=== PATIENT | female | born 1940 | race Native Hawaiian/Other Pacific Islander ===

== ENCOUNTER 2017-09-10 14:17 | Observation (INO) | payer MEDICARE, OTHER ==
[2017-09-10 15:26] LABS: Anisocytosis Slight; Basophils % (A) 0 %; Eosinophils # (A) 0.3 k/uL (0-0.7); Eosinophils % (A) 3 %; HGB 8.9 gm/dL (11.4-16.0); Hypochromasia Marked; Lymphocytes # (A) 2.1 k/uL (1.0-4.8); Lymphocytes % (A) 27 %; MCH 23.9 pg (25.0-35.0); MCHC 30.6 g/dL (31.0-37.0); MCV 78.1 fL (80.0-100.0); Mean Platelet Volume 7.3; Microcytosis Slight; Monocytes # (A) 0.7 k/uL (0-1.0); Monocytes % (A) 9 %; Neutrophils # (A) 4.4 k/uL (1.3-7.7); Neutrophils % (A) 58 %; Platelet Count 398 k/uL (150-450); Poikilocytosis Slight; RBC 3.71 m/uL (3.80-5.40); RDW 16.1 % (11.5-15.5); WBC 7.6 k/uL (3.8-10.6)
--- NOTE | 2017-09-10 15:30 | ED ---
General Adult HPI - General Chief complaint: Fever Stated complaint: Fever Time Seen by Provider: 09/10/17 14:31 Source: family, EMS, RN notes reviewed, old records reviewed Mode of arrival: EMS Limitations: altered mental status, physical limitation - History of Present Illness Initial comments: 77 yo female transferred from the intermediate with persistent fever and concern for sepsis. Patient is 6 weeks status post intracranial hemorrhage craniotomy. She has been in the intermediate and has failed to improve according to her . She is trached with 6 L trach collar. She receives her feeding through a PEG tube. She is nonambulatory, nonverbal. Patient is unable to do the history and the does not speak fluent Armenian. - Related Data Home Medications Medication Instructions Recorded Confirmed Acetaminophen Tab [Tylenol Tab] 650 mg PEG/G-TUBE Q4H PRN 09/10/17 09/10/17 Heparin Sodium,Porcine [Heparin 5,000 unit SQ TID@06,14,22 09/10/17 09/10/17 Sodium] Ipratropium-Albuterol Nebulize 3 ml INHALATION RT-Q4H 09/10/17 09/10/17 [Duoneb 0.5 mg-3 mg/3 ml Soln] Jevity 1.5 Augusto Liquid 50 ml PEG/G-TUBE DIRECTED 09/10/17 09/10/17 Lansoprazole 30 mg PEG/G-TUBE DAILY@0600 09/10/17 09/10/17 Metoprolol Tartrate [Lopressor] 25 mg PEG/G-TUBE BID 09/10/17 09/10/17 Refresh Lacri-Lube Opth Oint 0.25 inch BOTH EYES QID@00,06,12,18 09/10/17 cloNIDine 0.2 MG/24HR PATCH 1 patch TRANSDERM SA@0900 09/10/17 09/10/17 [Catapres-TTS] levETIRAcetam 500 mg PEG/G-TUBE Q12H 09/10/17 09/10/17 Allergies Allergy/AdvReac Type Severity Reaction Status Date / Time No Known Allergies Allergy Verified 09/10/17 14:34 Review of Systems ROS Statement: Those systems with pertinent positive or pertinent negative responses have been documented in the HPI. ROS Other: All systems not noted in ROS Statement are negative. Past Medical History Past Medical History: Unable to Obtain, CVA/TIA, GERD/Reflux History of Any Multi-Drug Resistant Organisms: Unobtainable Past Surgical History: Unable to Obtain Past Psychological History: Unable to Obtain Smoking Status: Unknown if ever smoked Past Alcohol Use History: Unable to Obtain Past Drug Use History: Unable to Obtain General Exam Limitations: altered mental status, physical limitation General appearance: alert, in no apparent distress Head exam: Present: atraumatic, normocephalic Eye exam: Absent: normal appearance ((Sluggish, corneal clouding. Right pupil 4 mm sluggish) ENT exam: Present: mucous membranes dry Neck exam: Present: normal inspection. Absent: meningismus Respiratory exam: Present: rhonchi (Rhonchi bilaterally may be transmitted upper airway). Absent: respiratory distress Cardiovascular Exam: Present: regular rate, normal rhythm GI/Abdominal exam: Present: soft. Absent: distended, tenderness Extremities exam: Present: normal inspection Back exam: Present: other (Stage I sacral decubitus ulcer) Neurological exam: Present: other (Patient does not move any extremity, she does not follow commands. She does spontaneously open her right eye.) Skin exam: Present: warm, dry Course Vital Signs 09/10/17 09/10/17 14:23 16:44 Temperature 99.5 F Pulse Rate 78 79 Respiratory 18 20 Rate Blood Pressure 152/67 177/75 O2 Sat by Pulse 100 100 Oximetry Medical Decision Making - Medical Decision Making 77 yo female with recent intracranial hemorrhage presents from intermediate with fever and failure to progress to rehab. Given the recent renal hemorrhage computed tomography scan is obtained, this shows a chronic subdural with postoperative change and concern for possible acute hemorrhage with 4.5 mm shift no herniation noted. This CT finding is discussed with the patient's neurosurgeon from [facility] Dr. King, he is very familiar with the patient, she was recently discharged from their hospital. He states these findings are chronic. He is not concern for acute intracranial hemorrhage. He also states that her current state of health is her baseline mental status no change noted. Fever workup is obtained in the emergency department, patient has chest x-ray with no focal pneumonia, there is some atelectasis. White blood cell count is normal, hemoglobin is 8.9 with no baseline for comparison. CMP unremarkable. Urinalysis negative for infection. Skin exam with the exception of a stage I non-infected sacral decubitus ulcer is unremarkable. Case discussed with Dr. Diehl, will accept the patient in observation status. Awaiting culture results. Patient's vital signs do not point toward sepsis at this time however she is high risk and will be observed. No antibiotics given awaiting culture results. - Lab Data Result diagrams: 09/10/17 15:05 09/10/17 15:05 Lab Results 09/10/17 09/10/17 09/10/17 Range/Units 15:05 15:05 15:05 WBC 7.6 (3.8-10.6) k/uL RBC 3.71 L (3.80-5.40) m/uL Hgb 8.9 L (11.4-16.0) gm/dL Hct 29.0 L (34.0-46.0) % MCV 78.1 L (80.0-100.0) fL MCH 23.9 L (25.0-35.0) pg MCHC 30.6 L (31.0-37.0) g/dL RDW 16.1 H (11.5-15.5) % Plt Count 398 (150-450) k/uL Neutrophils % 58 % Lymphocytes % 27 % Monocytes % 9 % Eosinophils % 3 % Basophils % 0 % Neutrophils # 4.4 (1.3-7.7) k/uL Lymphocytes # 2.1 (1.0-4.8) k/uL Monocytes # 0.7 (0-1.0) k/uL Eosinophils # 0.3 (0-0.7) k/uL Basophils # 0.0 (0-0.2) k/uL Hypochromasia Marked Poikilocytosis Slight Anisocytosis Slight Microcytosis Slight Sodium 135 L (137-145) mmol/L Potassium 4.8 (3.5-5.1) mmol/L Chloride 99 (98-107) mmol/L Carbon Dioxide 25 (22-30) mmol/L Anion Gap 11 mmol/L BUN 19 H (7-17) mg/dL Creatinine 0.50 L (0.52-1.04) mg/dL Est GFR (CKD-EPI)AfAm >90 (>60 ml/min/1.73 sqM) Est GFR (CKD-EPI)NonAf >90 (>60 ml/min/1.73 sqM) Glucose 102 H (74-99) mg/dL Plasma Lactic Acid Ashvin 1.0 (0.7-2.0) mmol/L Calcium 9.4 (8.4-10.2) mg/dL Total Bilirubin 0.4 (0.2-1.3) mg/dL AST 39 H (14-36) U/L ALT 24 (9-52) U/L Alkaline Phosphatase 94 (38-126) U/L Total Protein 6.6 (6.3-8.2) g/dL Albumin 3.1 L (3.5-5.0) g/dL Urine Color Urine Appearance (Clear) Urine pH (5.0-8.0) Ur Specific [place] (1.001-1.035) Urine Protein (Negative) Urine Glucose (UA) (Negative) Urine Ketones (Negative) Urine Blood (Negative) Urine Nitrite (Negative) Urine Bilirubin (Negative) Urine Urobilinogen (<2.0) mg/dL Ur Leukocyte Esterase (Negative) Urine RBC (0-5) /hpf Urine WBC (0-5) /hpf Ur Squamous Epith Cells (0-4) /hpf Urine Bacteria (None) /hpf Urine Mucus (None) /hpf Urine Yeast (Budding) (None) /hpf 09/10/17 Range/Units 15:05 WBC (3.8-10.6) k/uL RBC (3.80-5.40) m/uL Hgb (11.4-16.0) gm/dL Hct (34.0-46.0) % MCV (80.0-100.0) fL MCH (25.0-35.0) pg MCHC (31.0-37.0) g/dL RDW (11.5-15.5) % Plt Count (150-450) k/uL Neutrophils % % Lymphocytes % % Monocytes % % Eosinophils % % Basophils % % Neutrophils # (1.3-7.7) k/uL Lymphocytes # (1.0-4.8) k/uL Monocytes # (0-1.0) k/uL Eosinophils # (0-0.7) k/uL Basophils # (0-0.2) k/uL Hypochromasia Poikilocytosis Anisocytosis Microcytosis Sodium (137-145) mmol/L Potassium (3.5-5.1) mmol/L Chloride (98-107) mmol/L Carbon Dioxide (22-30) mmol/L Anion Gap mmol/L BUN (7-17) mg/dL Creatinine (0.52-1.04) mg/dL Est GFR (CKD-EPI)AfAm (>60 ml/min/1.73 sqM) Est GFR (CKD-EPI)NonAf (>60 ml/min/1.73 sqM) Glucose (74-99) mg/dL Plasma Lactic Acid Ashvin (0.7-2.0) mmol/L Calcium (8.4-10.2) mg/dL Total Bilirubin (0.2-1.3) mg/dL AST (14-36) U/L ALT (9-52) U/L Alkaline Phosphatase (38-126) U/L Total Protein (6.3-8.2) g/dL Albumin (3.5-5.0) g/dL Urine Color Yellow Urine Appearance Clear (Clear) Urine pH 5.5 (5.0-8.0) Ur Specific [place] 1.023 (1.001-1.035) Urine Protein Trace H (Negative) Urine Glucose (UA) Negative (Negative) Urine Ketones Negative (Negative) Urine Blood Negative (Negative) Urine Nitrite Negative (Negative) Urine Bilirubin Negative (Negative) Urine Urobilinogen <2.0 (<2.0) mg/dL Ur Leukocyte Esterase Small H (Negative) Urine RBC 8 H (0-5) /hpf Urine WBC 9 H (0-5) /hpf Ur Squamous Epith Cells 1 (0-4) /hpf Urine Bacteria Rare H (None) /hpf Urine Mucus Occasional H (None) /hpf Urine Yeast (Budding) Occasional H (None) /hpf Disposition Clinical Impression: Fever Disposition: ADMITTED IP TO THIS [facility] Condition: Stable Is patient prescribed a controlled substance at d/c from ED?: No Referrals: Paul Albrecht MD [Primary Care Provider] - 1-2 days Decision to Admit Reason: Admit from EC Decision Date: 09/10/17 Decision Time: 17:23
[2017-09-10 15:33] LABS: ALT 24 U/L (9-52); AST 39 U/L (14-36); Albumin 3.1 g/dL (3.5-5.0); Alkaline Phosphatase 94 U/L (38-126); Anion Gap 11 mmol/L; Blood Urea Nitrogen 19 mg/dL (7-17); Calcium 9.4 mg/dL (8.4-10.2); Carbon Dioxide 25 mmol/L (22-30); Chloride 99 mmol/L (98-107); Glucose 102 mg/dL (74-99); Potassium 4.8 mmol/L (3.5-5.1); Sodium 135 mmol/L (137-145); Total Bilirubin 0.4 mg/dL (0.2-1.3); Total Protein 6.6 g/dL (6.3-8.2)
--- NOTE | 2017-09-10 15:34 | XR ---
EXAMINATION TYPE: XR chest 1V portable DATE OF EXAM: 09/10/2017 COMPARISON: NONE HISTORY: Fever TECHNIQUE: Single frontal view of the chest is obtained. FINDINGS: There is no focal air space opacity, pleural effusion, or pneumothorax seen. The cardiac silhouette size is within normal limits. The osseous structures are intact. Postsurgical changes overlying the cervical spine and right shoulder. PICC line noted with tracheosto my tube. Tube approximately 2 cm above daljit. Surgical clips in the right upper quadrant of the abdo men. Linear changes at the left lung base. IMPRESSION: 1. Subsegmental changes at the left lung base. Atelectasis favored over pneumonia correlate clinicall y for confirmation.
[2017-09-10 15:40] LABS: Appearance,Urine Clear (Clear); Bacteria,Urine Rare /hpf; Bilirubin,Urine Negative (Negative); Blood,Urine Negative (Negative); Budding Yeast,Urine Occasional /hpf; Color,Urine Yellow; Glucose,Urine (UA) Negative (Negative); Ketones,Urine Negative (Negative); Leukocyte Esterase,Urine Small (Negative); Mucus,Urine Occasional /hpf; Nitrite,Urine Negative (Negative); PH, Urine 5.5 (5.0-8.0); Protein,Urine Trace (Negative); RBC,Urine 8 /hpf (0-5); Specific Gravity,Urine 1.023 (1.001-1.035); Urobilinogen,Urine <2.0 mg/dL (<2.0); WBC,Urine 9 /hpf (0-5)
[2017-09-10 15:43] LABS: Squamous Epithelial Cell,Urine 1 /hpf (0-4)
--- NOTE | 2017-09-10 16:15 | CT ---
EXAMINATION TYPE: CT brain wo con DATE OF EXAM: 09/10/2017 COMPARISON: NONE HISTORY: Altered mental status. CT DLP: [address] of the brain was performed. Left-sided craniotomy changes. Predominantly chronic appearing left-sided subdural collection althoug h there are linear areas of increased attenuation which may reflect acute superimposed hemorrhage destiny rohit postoperative change. Maximal transverse dimension is 9.8 mm. There is left to right shift of approximately 4.5 mm without evidence for subfalcine herniation. Larg e area of remote insult posterior left parietal region. The ventricles, basal cisterns and sulci overlying the cerebral convexities demonstrate mild enlargem ent. There is decreased attenuation about the periventricular white matter and deep white matter of both c erebral hemispheres, compatible with chronic small vessel ischemia. Differential diagnosis does inclu de demyelination. Right-sided zainab hole formation noted. If symptoms persist consider MRI. IMPRESSION: 1. Predominantly chronic appearing left-sided subdural collection although there are linear areas of increased attenuation which may reflect acute superimposed hemorrhage versus postoperative change. 2.There is left to right shift of approximately 4.5 mm without evidence for subfalcine herniation.
[2017-09-10] MEDS ORDERED: LABETALOL 5 MG/ML VIAL MDV IVP STA (16:34)
[2017-09-10] MEDS ORDERED: ACETAMINOPHEN TAB 325 MG TAB PO PRN (17:24)
[2017-09-10] MEDS ORDERED: NALOXONE 0.4 MG/ML 1 ML VIAL IV PRN (17:24)
[2017-09-10] MEDS: ENALAPRILAT 1.25 MG/ML 1 ML VIAL IVP PRN (19:53)
[2017-09-10] MEDS: SODIUM CHLORIDE 0.9% 1,000 ML IV SCH (20:14)
[2017-09-10] MEDS ORDERED: ENTERAL NUTRITION FORMULA PEG/G-TUBE SCH (20:30)
[2017-09-10] MEDS: IPRATROPIUM-ALBUTEROL 3 ML NEB INHALATION SCH ×2 (20:41→23:27)
[2017-09-10] MEDS ORDERED: cloNIDine 0.2 MG/24HR PATCH 1 PATCH PATCH TRANSDERM SCH (21:00)
[2017-09-10] MEDS: levETIRAcetam ORAL SOLN 500 MG/5 ML CUP PEG/G-TUBE SCH (22:49)
[2017-09-10] MEDS: HEPARIN SODIUM,PORCINE 5,000 UNIT/ML 1 ML VIAL SQ SCH (22:49)
[2017-09-10] MEDS: METOPROLOL TARTRATE 25 MG TAB PEG/G-TUBE SCH (22:49)
[2017-09-11 01:02] VITALS: BMI 29.8
[2017-09-11] MEDS: ENALAPRILAT 1.25 MG/ML 1 ML VIAL IVP PRN (01:39)
[2017-09-11] MEDS: ACETAMINOPHEN TAB 325 MG TAB PEG/G-TUBE PRN ×3 (01:41→09:46)
[2017-09-11] MEDS: IPRATROPIUM-ALBUTEROL 3 ML NEB INHALATION SCH ×6 (03:15→23:47)
[2017-09-11] MEDS: HEPARIN SODIUM,PORCINE 5,000 UNIT/ML 1 ML VIAL SQ SCH ×3 (06:25→22:34)
[2017-09-11] MEDS: PANTOPRAZOLE SODIUM 40 MG GRANULE PKT PEG/G-TUBE SCH (06:25)
[2017-09-11 08:30] LABS: Basophils % (A) 0 %; Eosinophils # (A) 0.3 k/uL (0-0.7); Eosinophils % (A) 4 %; HGB 8.6 gm/dL (11.4-16.0); Hypochromasia Marked; Lymphocytes # (A) 2.2 k/uL (1.0-4.8); Lymphocytes % (A) 31 %; MCH 24.4 pg (25.0-35.0); MCHC 30.7 g/dL (31.0-37.0); MCV 79.6 fL (80.0-100.0); Mean Platelet Volume 7.6; Monocytes # (A) 0.5 k/uL (0-1.0); Monocytes % (A) 8 %; Neutrophils # (A) 3.9 k/uL (1.3-7.7); Neutrophils % (A) 55 %; Platelet Count 410 k/uL (150-450); Poikilocytosis Moderate; RBC 3.52 m/uL (3.80-5.40); RDW 15.7 % (11.5-15.5)
[2017-09-11 09:44] LABS: ALT 29 U/L (9-52); AST 45 U/L (14-36); Alkaline Phosphatase 98 U/L (38-126); Anion Gap 10 mmol/L; Blood Urea Nitrogen 18 mg/dL (7-17); Calcium 8.9 mg/dL (8.4-10.2); Carbon Dioxide 25 mmol/L (22-30); Chloride 99 mmol/L (98-107); Glucose 128 mg/dL (74-99); Sodium 134 mmol/L (137-145); Total Bilirubin 0.4 mg/dL (0.2-1.3); Total Protein 6.5 g/dL (6.3-8.2)
[2017-09-11] MEDS: METOPROLOL TARTRATE 25 MG TAB PEG/G-TUBE SCH ×2 (09:46→22:34)
[2017-09-11 10:41] LABS: Potassium 4.7 mmol/L (3.5-5.1)
[2017-09-11] MEDS: levETIRAcetam ORAL SOLN 500 MG/5 ML CUP PEG/G-TUBE SCH ×2 (12:34→22:34)
--- NOTE | 2017-09-11 12:39 | P.HPIM ---
History of Present Illness H&P Date: 09/11/17 Chief Complaint: Sepsis This is a 77-year-old female with past medical history noted below significant for recent hemorrhagic stroke status post craniotomy several weeks ago and is currently trached and pegged and is essentially unresponsive. Patient was discharged from [facility] last week and went to a local senior living where she stayed less than 24 hours and subsequently was noted to be tachycardic and having fevers. With concern about sepsis patient was sent to the emergency room. She was evaluated in the emergency room and initial workup was unremarkable. She was noted to have a mildly positive urinalysis. Patient is again bedbound, she is to contact. She is unable to provide any history. She is not responsive to painful stimuli. Her and son is bedside. Review of Systems Unable to review other systems even mental status Past Medical History Past Medical History: Unable to Obtain, CVA/TIA, GERD/Reflux History of Any Multi-Drug Resistant Organisms: Unobtainable Past Surgical History: Unable to Obtain Past Psychological History: Unable to Obtain Smoking Status: Unknown if ever smoked Past Alcohol Use History: Unable to Obtain Past Drug Use History: Unable to Obtain Medications and Allergies Home Medications Medication Instructions Recorded Confirmed Type Acetaminophen Tab [Tylenol Tab] 650 mg PEG/G-TUBE Q4H PRN 09/10/17 09/10/17 History Heparin Sodium,Porcine [Heparin 5,000 unit SQ TID@06,14,22 09/10/17 09/10/17 History Sodium] Ipratropium-Albuterol Nebulize 3 ml INHALATION RT-Q4H 09/10/17 09/10/17 History [Duoneb 0.5 mg-3 mg/3 ml Soln] Jevity 1.5 Augusto Liquid 50 ml PEG/G-TUBE DIRECTED 09/10/17 09/10/17 History Lansoprazole 30 mg PEG/G-TUBE DAILY@0600 09/10/17 09/10/17 History Metoprolol Tartrate [Lopressor] 25 mg PEG/G-TUBE BID 09/10/17 09/10/17 History Refresh Lacri-Lube Opth Oint 0.25 inch BOTH EYES QID@00,06,12,18 09/10/17 History cloNIDine 0.2 MG/24HR PATCH 1 patch TRANSDERM SA@0900 09/10/17 09/10/17 History [Catapres-TTS] levETIRAcetam 500 mg PEG/G-TUBE Q12H 09/10/17 09/10/17 History Allergies Allergy/AdvReac Type Severity Reaction Status Date / Time No Known Allergies Allergy Verified 09/10/17 14:34 Physical Exam Vitals: Vital Signs Temp Pulse Pulse Resp BP BP Pulse Ox 09/11/17 11:01 80 09/11/17 10:51 80 09/11/17 07:49 100.2 F H 95 24 151/61 98 09/11/17 07:33 79 09/11/17 07:23 78 09/11/17 06:26 98.9 F 113/69 09/11/17 04:15 98.8 F 94 120/53 09/11/17 03:28 88 09/11/17 03:15 84 09/11/17 01:34 98.3 F 175/74 09/10/17 23:40 88 09/10/17 23:30 88 09/10/17 22:42 98.8 F 85 176/74 09/10/17 22:00 85 18 09/10/17 20:47 90 09/10/17 20:45 99.1 F 85 176/75 09/10/17 20:42 98 09/10/17 20:41 88 09/10/17 20:00 99.0 F 86 18 190/117 100 09/10/17 19:37 99.0 F 86 18 190/117 100 09/10/17 17:53 99.1 F 79 20 170/73 100 09/10/17 16:44 79 20 177/75 100 09/10/17 14:23 99.5 F 78 18 152/67 100 Intake and Output 09/10/17 09/11/17 09/11/17 22:59 06:59 14:59 Other: Voiding Method Indwelling Catheter # Voids 0 250 Weight 83.915 kg 83.915 kg General: The patient is obtunded Eye: there is normal conjunctiva bilaterally. Neck: The neck is supple, there is no JVD. Cardiovascular: Normal S1-S2, no S3-S4, no murmurs. Respiratory: Lungs clear to anterior chest auscultation bilaterally Gastrointestinal: Abdomen is soft, nontender. PEG tube in place Musculoskeletal: There is no pedal edema. Skin: Skin is warm and dry Results CBC & Chem 7: 09/11/17 07:44 09/11/17 07:44 Labs: Abnormal Lab Results - Last 24 Hours (Table) 09/10/17 09/10/17 09/10/17 Range/Units 15:05 15:05 15:05 RBC 3.71 L (3.80-5.40) m/uL Hgb 8.9 L (11.4-16.0) gm/dL Hct 29.0 L (34.0-46.0) % MCV 78.1 L (80.0-100.0) fL MCH 23.9 L (25.0-35.0) pg MCHC 30.6 L (31.0-37.0) g/dL RDW 16.1 H (11.5-15.5) % Sodium 135 L (137-145) mmol/L BUN 19 H (7-17) mg/dL Creatinine 0.50 L (0.52-1.04) mg/dL Glucose 102 H (74-99) mg/dL AST 39 H (14-36) U/L Albumin 3.1 L (3.5-5.0) g/dL Urine Protein Trace H (Negative) Ur Leukocyte Esterase Small H (Negative) Urine RBC 8 H (0-5) /hpf Urine WBC 9 H (0-5) /hpf Urine Bacteria Rare H (None) /hpf Urine Mucus Occasional H (None) /hpf Urine Yeast (Budding) Occasional H (None) /hpf 09/11/17 09/11/17 Range/Units 07:44 07:44 RBC 3.52 L (3.80-5.40) m/uL Hgb 8.6 L (11.4-16.0) gm/dL Hct 28.0 L (34.0-46.0) % MCV 79.6 L (80.0-100.0) fL MCH 24.4 L (25.0-35.0) pg MCHC 30.7 L (31.0-37.0) g/dL RDW 15.7 H (11.5-15.5) % Sodium 134 L (137-145) mmol/L BUN 18 H (7-17) mg/dL Creatinine 0.49 L (0.52-1.04) mg/dL Glucose 128 H (74-99) mg/dL AST 45 H (14-36) U/L Albumin 3.0 L (3.5-5.0) g/dL Urine Protein (Negative) Ur Leukocyte Esterase (Negative) Urine RBC (0-5) /hpf Urine WBC (0-5) /hpf Urine Bacteria (None) /hpf Urine Mucus (None) /hpf Urine Yeast (Budding) (None) /hpf Microbiology - Last 24 Hours (Table) 09/10/17 15:05 Urine Culture - Preliminary Urine,Catheterized Thrombosis Risk Factor Assmnt - Choose All That Apply Any of the Below Risk Factors Present?: Yes Each Factor Represents 1 point: Medical pt on bed rest, Obesity (BMI >25) Other Risk Factors: Yes Each Risk Factor Represents 2 Points: Patient confined to bed Each Risk Factor Represents 3 Points: Age 75 years or older Thrombosis Risk Factor Assessment Total Risk Factor Score: 7 Thrombosis Risk Factor Assessment Level: High Risk Assessment and Plan Assessment: 1. Sepsis on presentation with tachycardia and fevers reported the senior living. May be attributed to UTI. Influenza screen was negative. Chest x-ray with no evidence of pneumonia. 2. Catheter associated urinary tract infection: I will start IV ceftriaxone awaiting urine culture to finalize 3. History of intracranial bleed status post craniotomy at [facility] in [place]. Computed tomography scan of the brain in the emergency room showed chronic-appearing left-sided subdural collection with a right shift approximately 4 mm with no evidence of herniation. Case was discussed with her neurosurgeon by ER staff. Those findings appear chronic. No further recommendations from her neurosurgeon at this time 4. Essential hypertension: Blood pressure within acceptable range 5. Chronic respiratory failure status post tracheostomy 6. Chronically nonverbal Today, I had a prolonged discussion regarding goals of care with the patient's and her son. I explained to them her current clinical condition and her overall poor prognosis. Her appears struggling to make decisions regarding CODE STATUS or goals of care. He said that he would like to discuss more with his other kids out of state. He would like to meet with hospice for informative meeting today. In the meantime we'll continue supportive care. Prognosis is guarded.
[2017-09-11] MEDS: cefTRIAXone IN SWFI 1,000 MG/10 ML SYRINGE IVP SCH (12:44)
[2017-09-11] MEDS: SODIUM CHLORIDE 0.9% 1,000 ML IV SCH (17:31)
[2017-09-12] MEDS: IPRATROPIUM-ALBUTEROL 3 ML NEB INHALATION SCH ×5 (03:45→20:25)
[2017-09-12] MEDS: HEPARIN SODIUM,PORCINE 5,000 UNIT/ML 1 ML VIAL SQ SCH ×2 (06:06→13:21)
[2017-09-12] MEDS: PANTOPRAZOLE SODIUM 40 MG GRANULE PKT PEG/G-TUBE SCH (06:06)
[2017-09-12] MEDS: METOPROLOL TARTRATE 25 MG TAB PEG/G-TUBE SCH (08:04)
[2017-09-12] MEDS: ACETAMINOPHEN TAB 325 MG TAB PEG/G-TUBE PRN (08:04)
[2017-09-12] MEDS: levETIRAcetam ORAL SOLN 500 MG/5 ML CUP PEG/G-TUBE SCH (08:04)
[2017-09-12] MEDS: ENALAPRILAT 1.25 MG/ML 1 ML VIAL IVP PRN (08:05)
[2017-09-12 08:15] VITALS: RESP 20
[2017-09-12] MEDS: cefTRIAXone IN SWFI 1,000 MG/10 ML SYRINGE IVP SCH (13:20)
[2017-09-12 13:25] VITALS: BP 135/84; TEMP 99.6
--- NOTE | 2017-09-12 14:42 | P.DS ---
Providers Date of admission: 09/10/17 17:24 Expected date of discharge: 09/12/17 Attending physician: Nicole Diehl Primary care physician: Paul [place] Hospital Course: Discharge diagnosis 1. Sepsis on presentation with tachycardia and fevers reported the detention. May be attributed to UTI. Influenza screen was negative. Chest x-ray with no evidence of pneumonia. 2. Catheter associated urinary tract infection: Urine culture pending. Patient will continue Ceftin for 5 more days 3. History of intracranial bleed status post craniotomy at [facility] in [place]. Computed tomography scan of the brain in the emergency room showed chronic-appearing left-sided subdural collection with a right shift approximately 4 mm with no evidence of herniation. Case was discussed with her neurosurgeon by ER staff. Those findings appear chronic. No further recommendations from her neurosurgeon at this time 4. Essential hypertension: Blood pressure within acceptable range 5. Chronic respiratory failure status post tracheostomy 6. Chronically nonverbal Hospital course This is a 77-year-old female with past medical history noted below significant for recent hemorrhagic stroke status post craniotomy several weeks ago and is currently trached and pegged and is essentially unresponsive. Patient was discharged from [facility] last week and went to a local detention where she stayed less than 24 hours and subsequently was noted to be tachycardic and having fevers. With concern about sepsis patient was sent to the emergency room. She was evaluated in the emergency room and initial workup was unremarkable. She was noted to have a mildly positive urinalysis. Patient is again bedbound, she is to contact. She is unable to provide any history. She is not responsive to painful stimuli. Her and son is bedside. Patient remains unresponsive. She was found have evidence of UTI and started on IV Rocephin. Urine cultures pending. Patient still had a few low-grade temps yesterday. Patient's overall condition is poor and guarded. Patient has been pretty much unresponsive per the past few weeks since she had the stroke. Family is aware of her poor prognosis. They wish to proceed with hospice. They want patient to be discharged to [facility] with hospice. Patient will be given scripts for pain and anxiety. And will be discharged to [facility] for hospice and comfort care. At this time we'll continue with her current home medications until she is evaluated by the hospice physician at [place]. I performed an examination of the patient and discussed their management with the physician Exercise Physiologist. I have reviewed the Physician Exercise Physiologist's notes and agree with the documented findings and plan of care Patient Condition at Discharge: Stable Plan - Discharge Summary Discharge Rx Participant: No New Discharge Prescriptions: New Cefuroxime Axetil [Ceftin] 500 mg PO BID #10 tab LORazepam [Ativan] 1 mg PO BID PRN #6 tab PRN Reason: Agitation MORPHINE ORAL VAISHALI CONC 20mg/mL [Roxanol Oral Soln Conc 20MG/ML] 10 mg PO Q4H PRN #60 ml PRN Reason: Pain Scopolamine 1.5MG/72Hr Patch [TransDerm Scop] 1 patch TRANSDERM Q72H #3 patch Continue Acetaminophen Tab [Tylenol] 650 mg PEG/G-TUBE Q4H PRN PRN Reason: Fever And/ Or Pain Ipratropium-Albuterol Nebulize [Duoneb 0.5 mg-3 mg/3 ml Soln] 3 ml INHALATION RT-Q4H Refresh Lacri-Lube Opth Oint 0.25 inch BOTH EYES QID@00,06,12,18 levETIRAcetam 500 mg PEG/G-TUBE Q12H Metoprolol Tartrate [Lopressor] 25 mg PEG/G-TUBE BID Jevity 1.5 Augusto Liquid 50 ml PEG/G-TUBE DIRECTED cloNIDine 0.2 MG/24HR PATCH [Catapres-TTS] 1 patch TRANSDERM SA@0900 Lansoprazole 30 mg PEG/G-TUBE DAILY@0600 Discontinued Heparin Sodium,Porcine [Heparin Sodium] 5,000 unit SQ TID@,, Discharge Medication List Acetaminophen Tab [Tylenol] 650 mg PEG/G-TUBE Q4H PRN 09/10/17 [History] Ipratropium-Albuterol Nebulize [Duoneb 0.5 mg-3 mg/3 ml Soln] 3 ml INHALATION RT -Q4H 09/10/17 [History] Jevity 1.5 Augusto Liquid 50 ml PEG/G-TUBE DIRECTED 09/10/17 [History] Lansoprazole 30 mg PEG/G-TUBE DAILY@0600 09/10/17 [History] Metoprolol Tartrate [Lopressor] 25 mg PEG/G-TUBE BID 09/10/17 [History] Refresh Lacri-Lube Opth Oint 0.25 inch BOTH EYES QID@00,06,12,18 09/10/17 [ History] cloNIDine 0.2 MG/24HR PATCH [Catapres-TTS] 1 patch TRANSDERM SA@0900 09/10/17 [ History] levETIRAcetam 500 mg PEG/G-TUBE Q12H 09/10/17 [History] Cefuroxime Axetil [Ceftin] 500 mg PO BID #10 tab 09/12/17 [Rx] LORazepam [Ativan] 1 mg PO BID PRN #6 tab 09/12/17 [Rx] MORPHINE ORAL VAISHALI CONC 20mg/mL [Roxanol Oral Soln Conc 20MG/ML] 10 mg PO Q4H PRN #60 ml 09/12/17 [Rx] Scopolamine 1.5MG/72Hr Patch [TransDerm Scop] 1 patch TRANSDERM Q72H #3 patch [Rx] Activity/Diet/Wound Care/Special Instructions: Discharge to [facility] with Hospice Discharge Disposition: DISCH TO HOSPICE MED FACILTY
--- NOTE | 2017-09-12 14:46 | P.PN ---
Progress Note - Text Progress Note Date: 09/12/17 There was a family meeting completed in the patient's room on 09/12/2017 at 1: 00. Patient's , son Michael, Dr. Diehl and myself were present for the meeting. Dr. Diehl discussed patient's overall poor prognosis and current condition. Patient has a history of intracranial bleed status post craniotomy. And has essentially been unresponsive for the past several weeks. She's also trach and PEG. She presents to the hospital during this admission with evidence of a UTI. She started on antibiotics. Patient's family has been informed that likely if patient's continues in this state she will have recurrent infections that we'll continue to worsen. Dr. Diehl described the details about hospice. Family members including the son and expressed that they understood what hospice was. And that they wanted to proceed with hospice care at [facility]. Hospice and social work wet met with family. Patient will be discharged with hospice to [facility].
[2017-09-12 15:20] VITALS: PULSE 76
[2017-09-12] MEDS: SODIUM CHLORIDE 0.9% 1,000 ML IV SCH (17:21)
== END 2017-09-12 18:00 | disposition hospice, inpatient (51) ==
LOC: EC 14:17 → 5MS5E 17:24
PROVIDERS: ADMIT Internal Medicine; ATTEND Internal Medicine
DX: A41.9 Sepsis, unspecified organism (principal); N39.0 Urinary tract infection, site not specified; T83.518A Infection and inflammatory reaction due to other urinary catheter, initial encounter; J96.10 Chronic respiratory failure, unspecified whether with hypoxia or hypercapnia; Z93.0 Tracheostomy status; I10 Essential (primary) hypertension; I69.198 Other sequelae of nontraumatic intracerebral hemorrhage; K21.9 Gastro-esophageal reflux disease without esophagitis; Z74.01 Bed confinement status; F41.9 Anxiety disorder, unspecified; E66.9 Obesity, unspecified; Z68.29 Body mass index [BMI] 29.0-29.9, adult; Z93.1 Gastrostomy status; Z95.828 Presence of other vascular implants and grafts; Z79.899 Other long term (current) drug therapy; Y84.6 Urinary catheterization as the cause of abnormal reaction of the patient, or of later complication, without mention of misadventure at the time of the procedure
CPT/HCPCS: 99285 ×2; 96374 ×2; 96376 ×3; 96372 ×3; 96375; 36415; 94640 ×6; 94760 ×2; 80053 ×2; 83605; 85025 ×2; 81001; 87040; 87086; 87502; 71045; 70450; G0378 ×3; J1644 ×3; J0696 ×2